=== PATIENT | female | born 1990 | race Caucasian/White ===

== ENCOUNTER 2017-05-01 07:29 | Emergency (ER) | payer OTHER ==
[2017-05-01 07:37] VITALS: BMI 42.7
[2017-05-01] MEDS ORDERED: ONDANSETRON *ODT* 4 MG TABLET SL ONE (08:35)
[2017-05-01] MEDS ORDERED: ONDANSETRON *ODT* 4 MG TABLET ONE (08:37)
--- NOTE | 2017-05-01 08:37 | PDOC ---
History of Present Illness - General Chief Complaint: Cold Symptoms Stated Complaint: SHORTNESS OF BREATHING,FEVER Time Seen by Provider: 05/01/17 08:24 History Source: Patient Exam Limitations: No Limitations - History of Present Illness Initial Comments: 05/01/17 08:33 26 yr female with c/o sore throat body aches and urinary urgency and frequency. no pmhx took tylenol at 12am. Severity: reports: moderate Past History - Past Medical History Allergies/Adverse Reactions: Allergies Allergy/AdvReac Type Severity Reaction Status Date / Time No Known Allergies Allergy Verified 05/01/17 07:31 Home Medications: Ambulatory Orders NK [No Known Home Medication] 05/01/17 Asthma: Yes Cardiac Disorders: Yes (HEART MURMUR.) COPD: No - Suicide/Smoking/Psychosocial Hx Smoking History: Never smoked Have you smoked in the past 12 months: No Information on smoking cessation initiated: No Hx Alcohol Use: No Drug/Substance Use Hx: No Substance Use Type: Alcohol Review of Systems - Review of Systems Able to Perform ROS?: Yes Is the patient limited Iraqi proficient: No Constitutional: Yes: Symptoms Reported Respiratory: Yes: Symptoms reported ABD/GI: Yes: Nausea *Physical Exam - Vital Signs Last Vital Signs Temp Pulse Resp BP Pulse Ox 100.4 F H 110 H 18 155/100 100 05/01/17 07:34 05/01/17 07:34 05/01/17 07:34 05/01/17 07:34 05/01/17 07:34 - Physical Exam General Appearance: Yes: Nourished, Appropriately Dressed, Obese HEENT: positive: EOMI, NORA, Pharyngeal Erythema, Tonsillar Exudate, Tonsillar Erythema Neck: positive: Supple, Lymphadenopathy (L). negative: Lymphadenopathy (R) Respiratory/Chest: positive: Lungs Clear, Normal Breath Sounds. negative: Wheezing Cardiovascular: positive: Regular Rhythm, Regular Rate Gastrointestinal/Abdominal: positive: Normal Bowel Sounds, Soft Musculoskeletal: positive: Normal Inspection Extremity: positive: Normal Capillary Refill, Normal Inspection, Normal Range of Motion Integumentary: positive: Normal Color, Dry, Warm Neurologic: positive: Fully Oriented, Alert, Normal Mood/Affect, Normal Response , Motor Strength 5/5 Medical Decision Making - Medical Decision Making 05/01/17 08:35 cc: fever, body aches sore throat since monday night will check for strep will r/o UA zofran for nausea *DC/Admit/Observation/Transfer Diagnosis at time of Disposition: Viral respiratory illness - Discharge Dispostion Disposition: HOME Condition at time of disposition: Good - Referrals Referrals: ON STAFF,NOT [Primary Care Provider] - - Patient Instructions Printed Discharge Instructions: DI for Influenza -- Adult Additional Instructions: gargle with warm salt water 4-5 times a day take motrin 600mg every 6-8hrs for pain or fever you can also take tylenol 650mg every 4-6hrs get pleanty of rest increase vitamin C and Zinc to boost immune system follow with your doctor in 2-3 days for follow up - Post Discharge Activity
[2017-05-01 08:50] LABS: HCG,QUALITATIVE URINE NEGATIVE
[2017-05-01] MEDS ORDERED: IBUPROFEN 600 MG TABLET (FP) PO ONE (08:58)
[2017-05-01] MEDS ORDERED: IBUPROFEN 400 MG TABLET (FP) PO ONE (09:06)
[2017-05-01 09:45] LABS: URINE APPEARANCE CLEAR; URINE BILIRUBIN NEGATIVE (NEGATIVE); URINE BLOOD NEGATIVE (NEGATIVE); URINE COLOR LTYELLOW; URINE GLUCOSE (UA) NEGATIVE (NEGATIVE); URINE KETONE NEGATIVE (NEGATIVE); URINE LEUK ESTERASE NEGATIVE (NEGATIVE); URINE NITRITE NEGATIVE (NEGATIVE); URINE PROTEIN NEGATIVE (NEGATIVE); URINE UROBILINOGEN NEGATIVE mg/dL (0.2-1.0)
[2017-05-01 10:00] VITALS: BP 143/74; PULSE 88; TEMP 98.9
== END 2017-05-01 10:09 | disposition home or self-care (01) ==
LOC: JERFT 07:29
DX: J06.9 Acute upper respiratory infection, unspecified (principal); B97.89 Other viral agents as the cause of diseases classified elsewhere
CPT/HCPCS: 81003; 84703; 87070; 87086; 87430; 99282-25

== ENCOUNTER 2017-12-15 06:45 | Emergency (ER) | payer OTHER ==
[2017-12-15 07:23] VITALS: BP 150/76; PULSE 99; TEMP 98.4; BMI 45.3
[2017-12-15] MEDS ORDERED: KETOROLAC TROMETHAMINE 60 MG/2 ML VIAL IM ONE (08:20)
[2017-12-15] MEDS ORDERED: KETOROLAC TROMETHAMINE 60 MG/2 ML VIAL ONE (08:39)
--- NOTE | 2017-12-15 08:46 | PDOC ---
History of Present Illness - General Chief Complaint: Chronic pain Stated Complaint: LOWER BACK PAIN Time Seen by Provider: 12/15/17 08:08 History Source: Patient Exam Limitations: No Limitations - History of Present Illness Initial Comments: 12/15/17 08:40 27 yr female with c/o low back pain for one week after lifting weights felt "a pull" to low back getting worse. Pt with pain trying to clean herself after using the bathroom no abd pain neg numbness or tingling down the legs. no pmhx or allergies. Occurred: reports: last week Severity: reports: moderate Pain Location: reports: back Method of Injury: Yes: other (lifting weights ) Past History - Past Medical History Allergies/Adverse Reactions: Allergies Allergy/AdvReac Type Severity Reaction Status Date / Time No Known Allergies Allergy Verified 12/15/17 07:17 Home Medications: Ambulatory Orders Cyclobenzaprine HCl [Flexeril -] 10 mg PO TID PRN #21 tablet 12/15/17 Methylprednisolone [Medrol Dose Sameer] 4 mg PO ASDIR #21 tablet 12/15/17 Norgestrel-Ethinyl Estradiol [Cryselle-28 Tablet] 1 each PO DAILY 12/15/17 Asthma: Yes Cardiac Disorders: Yes (HEART MURMUR.) COPD: No - Suicide/Smoking/Psychosocial Hx Smoking History: Never smoked Have you smoked in the past 12 months: No Hx Alcohol Use: No Drug/Substance Use Hx: No Substance Use Type: Alcohol *Physical Exam - Vital Signs Last Vital Signs Temp Pulse Resp BP Pulse Ox 98.4 F 99 H 18 150/76 97 12/15/17 07:15 12/15/17 07:15 12/15/17 07:15 12/15/17 07:15 12/15/17 07:15 - Physical Exam General Appearance: Yes: Nourished, Mild Distress HEENT: positive: EOMI, NORA Neck: positive: Supple Respiratory/Chest: positive: Lungs Clear, Normal Breath Sounds Cardiovascular: positive: Regular Rhythm, Regular Rate Gastrointestinal/Abdominal: positive: Normal Bowel Sounds, Soft. negative: Tender Rectal Exam: positive: deferred Musculoskeletal: positive: Normal Inspection, Decreased Range of Motion, Other ( lumbar paraspinal soft tissue muscle tenderness neg betebral tenderness, neg rashes). negative: CVA Tenderness, CVA Tenderness (R), CVA Tenderness (L), Vertebral Tenderness Extremity: positive: Normal Capillary Refill, Normal Inspection, Other (pos SLR left and right legs at 45 degrees). 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 neg saddle anesthesia , neg numbness or tingling to legs will give toradol after neg pregancy result dc with medrol dose pack and flexeril follow up with orthopedist *DC/Admit/Observation/Transfer Diagnosis at time of Disposition: Low back pain Qualifiers: Chronicity: acute Back pain laterality: bilateral Sciatica presence: with sciatica Sciatica laterality: bilateral sciatica Qualified Code(s): M54.42 - Lumbago with sciatica, left side; M54.41 - Lumbago with sciatica, right side - Discharge Dispostion Disposition: HOME Condition at time of disposition: Good - Prescriptions Prescriptions: Cyclobenzaprine HCl [Flexeril -] 10 mg PO TID PRN #21 tablet PRN Reason: Muscle Spasms Methylprednisolone [Medrol Dose Sameer] 4 mg PO ASDIR #21 tablet - Referrals Referrals: Azeem Ugalde MD [Staff Physician] - - Patient Instructions Additional Instructions: take the medication as prescribed, you can start the steroid pack today apply heating pad to lower back every 3-4hrs for 20 minutes avoid heavy lifting or bending light walking can be helpful take the flexeril for muscle spasm, do not drive drink alcohol while taking this medicine Return to ER for any worsening symptoms follow up with the orthopedist in 3-5 days - Post Discharge Activity
== END 2017-12-15 09:07 | disposition home or self-care (01) ==
LOC: JERFT 06:45 → JER 06:45 → JERFT 09:07
PROC: 3E0233Z Introduction of Anti-inflammatory into Muscle, Percutaneous Approach (ICD-10-PCS; principal; 2017-12-15)
DX: M54.42 Lumbago with sciatica, left side (principal); M54.41 Lumbago with sciatica, right side; R01.1 Cardiac murmur, unspecified; J45.909 Unspecified asthma, uncomplicated
CPT/HCPCS: 84703; 99281-25

== ENCOUNTER 2018-05-01 19:48 | Emergency (ER) | payer OTHER ==
[2018-05-01 20:12] VITALS: BP 137/79; PULSE 84; TEMP 98.8; BMI 42.0
--- NOTE | 2018-05-01 20:14 | PDOC ---
Rapid Medical Evaluation Time Seen by Provider: 05/01/18 20:08 Medical Evaluation: Allergies Allergy/AdvReac Type Severity Reaction Status Date / Time No Known Allergies Allergy Verified 12/15/17 07:17 05/01/18 20:08 Pt presents for an episode of chest pain and coughing. Chest pain has since resolved. Hx of heart murmur. Pt states that she feels light headed at this time. Exam: NAD, breathing easily Orders: Labs, EKG, IVF, CXR Discharge Disposition - Diagnosis Chest pain - Referrals - Patient Instructions - Post Discharge Activity
[2018-05-01 21:51] LABS: BASO % 0.3 % (0-2.0); EOS % 0.7 % (0-4.5); HEMATOCRIT 40.3 % (32.4-45.2); HEMOGLOBIN 13.9 GM/dL (10.7-15.3); LYMPH % 19.8 % (8-40); MCH 29.5 pg (25.7-33.7); MCHC 34.3 g/dl (32.0-36.0); MEAN CELL VOLUME 85.9 fl (80-96); MONO % 8.9 % (3.8-10.2); NEUT % 70.3 % (42.8-82.8); PLATELET COUNT 323 K/MM3 (134-434)
[2018-05-02 00:25] LABS: URINE APPEARANCE SLCLOUDY; URINE BILIRUBIN NEGATIVE (<2.0 mg/dL); URINE COLOR YELLOW; URINE GLUCOSE (UA) NEGATIVE (NEGATIVE); URINE KETONE NEGATIVE (NEGATIVE); URINE LEUK ESTERASE 1+ (NEGATIVE); URINE NITRITE NEGATIVE (NEGATIVE); URINE PROTEIN NEGATIVE (NEGATIVE); URINE UROBILINOGEN NEGATIVE mg/dL (0.2-1.0)
[2018-05-02 00:26] LABS: EPI CELLS FEW /HPF (FEW); URINE MUCUS FEW
--- NOTE | 2018-05-02 13:48 | EKG ---
Test Reason : Blood Pressure : / mmHG Vent. Rate : 079 BPM Atrial Rate : 079 BPM P-R Int : 160 ms QRS Dur : 090 ms QT Int : 384 ms P-R-T Axes : 056 058 037 degrees QTc Int : 440 ms NORMAL SINUS RHYTHM NORMAL ECG NO PREVIOUS ECGS AVAILABLE Confirmed by EMILY GLASGOW, BEBO ([id number]) on 05/02/2018 1:48:00 PM Referred By: Confirmed By:BEBO DIAZ MD
== END 2018-05-02 01:14 | disposition left against medical advice (07) ==
LOC: JER 19:48
DX: R07.9 Chest pain, unspecified (principal)
CPT/HCPCS: 36415; 81003; 81015; 85025; 87086; 93005; 93010; 99283-25

== ENCOUNTER 2022-12-02 11:44 | Emergency (ER) | payer OTHER ==
[2022-12-02 11:55] VITALS: RESP 20; BMI 32.2
[2022-12-02] MEDS ORDERED: ONDANSETRON 4 MG/2 ML VIAL IVPB ONE (12:35)
[2022-12-02] MEDS ORDERED: ACETAMINOPHEN 1000 MG/100 ML BAG IVPB ONE (12:35)
[2022-12-02] MEDS ORDERED: SODIUM CHLORIDE 1,000 ML IV ONE (12:35)
[2022-12-02] MEDS ORDERED: ACETAMINOPHEN INJECTION 100 ML IVPB ONE (12:42)
[2022-12-02] MEDS ORDERED: ONDANSETRON 4 MG/2 ML VIAL ONE (12:43)
[2022-12-02 13:34] LABS: BASO % 0.3 % (0-2.0); EOS % 0.2 % (0-4.5); HEMATOCRIT 38.8 % (32.4-45.2); LYMPH % 10.2 % (8-40); MCH 28.8 pg (25.7-33.7); MCHC 33.6 g/dl (32.0-36.0); MEAN CELL VOLUME 85.6 fl (80-96); MEAN PLT VOLUME 8.1 fl (7.5-11.1); MONO % 5.1 % (3.8-10.2); NEUT % 84.2 % (42.8-82.8); PLATELET COUNT 298 10^3/uL (134-434); RBC 4.53 M/mm3 (3.60-5.2); RDW 14.4 % (11.6-15.6); WHITE BLOOD COUNT 9.9 K/mm3 (4.0-10.0)
[2022-12-02] MEDS ORDERED: IBUPROFEN 400 MG TABLET (FP) PO ONE ×2 (16:36→16:53)
[2022-12-02 16:39] LABS: POTASSIUM 4.2 mmol/L (3.5-5.1)
[2022-12-02 16:41] LABS: ALBUMIN 3.5 g/dl (3.4-5.0); CALCIUM 8.8 mg/dL (8.5-10.1)
[2022-12-02 16:45] LABS: CREATININE 0.8 mg/dL (0.55-1.3)
[2022-12-02 16:46] LABS: BILIRUBIN,TOTAL 0.8 mg/dL (0.2-1); TOT PROT 6.4 g/dl (6.4-8.2)
[2022-12-02 17:06] LABS: BLOOD UREA NITROGEN 9.7 mg/dL (7-18)
[2022-12-02 17:52] VITALS: BP 121/59; PULSE 59; TEMP 99.5
== END 2022-12-02 18:20 | disposition home or self-care (01) ==
LOC: JER 11:44
PROC: 3E033NZ Introduction of Analgesics, Hypnotics, Sedatives into Peripheral Vein, Percutaneous Approach (ICD-10-PCS; principal; 2022-12-02)
PROC: 3E033GC Introduction of Other Therapeutic Substance into Peripheral Vein, Percutaneous Approach (ICD-10-PCS; 2022-12-02)
PROC: 3E0337Z Introduction of Electrolytic and Water Balance Substance into Peripheral Vein, Percutaneous Approach (ICD-10-PCS; 2022-12-02)
DX: O21.9 Vomiting of pregnancy, unspecified (principal); O26.891 Other specified pregnancy related conditions, first trimester; R10.30 Lower abdominal pain, unspecified; O20.9 Hemorrhage in early pregnancy, unspecified; Z3A.00 Weeks of gestation of pregnancy not specified
CPT/HCPCS: 36415; 80053; 84702; 85025; 99284-25